=== PATIENT | male | born 1975 | race Two or more races ===

== ENCOUNTER 2016-12-05 14:19 | Emergency (ER) | payer SELFPAY ==
[~2016-12-05] VITALS: Ht 175.3 cm; Wt 111.1 kg
[2016-12-05 14:36] VITALS: BP 138/84
[2016-12-05] MEDS ORDERED: KETOROLAC TROMETH 60MG/2ML VIAL IM ONE (15:45)
[2016-12-05] MEDS ORDERED: IBUPROFEN 800 MG TAB PO ONE (15:45)
== END 2016-12-05 16:34 | disposition home or self-care (01) ==
LOC: ER 14:19
DX: S83.241A Other tear of medial meniscus, current injury, right knee, initial encounter (principal); M17.11 Unilateral primary osteoarthritis, right knee; X50.1XXA Overexertion from prolonged static or awkward postures, initial encounter; Y93.67 Activity, basketball; Y99.8 Other external cause status; Y92.89 Other specified places as the place of occurrence of the external cause
CPT/HCPCS: 73562; 73700; 99284; J1885

== ENCOUNTER 2017-10-29 14:06 | Emergency (ER) | payer SELFPAY ==
[~2017-10-29] VITALS: Ht 175.3 cm; Wt 122.5 kg
[2017-10-29 14:12] VITALS: BP 111/69
[2017-10-29 15:00] LABS: Basophils # (auto) 0.1 uL; Basophils % (auto) 1.1 % (0.0-2.0); Eosinophils # (auto) 0.2 uL; Eosinophils % (auto) 3.4 % (0.0-7.0); Hematocrit 44.9 % (41.0-53.0); Hemoglobin 15.1 g/dL (13.5-17.5); Lymphocytes # (auto) 3.2 uL; Lymphocytes % (auto) 44.9 % (10.0-50.0); Mean Corpuscular Hemoglobin 29.4 pg (28.0-32.0); Mean Corpuscular Hgb Conc. 33.7 g/dL (32.0-36.0); Mean Corpuscular Volume 87.4 fL (80.0-100.0); Monocytes % (auto) 14.2 % (0.0-12.0); Neutrophils # (auto) 2.6 uL; Neutrophils % (auto) 36.4 % (37.0-80.0); Nucleated Red Blood Cells % 0.3 %; Platelet Count (auto) 255 10^3/uL (140-450); Red Blood Cells 5.13 10^6/uL (4.5-5.90); Red Cell Distribution Width 15.1 % (11.8-14.3); White Blood Cell 7.1 10^3/uL (4.4-10.8)
[2017-10-29 15:10] LABS: Alanine Aminotransferase 32 U/L (16-61); Albumin 3.3 g/dL (3.4-5.0); Amylase 81 U/L (25-115); Anion Gap 8 (5-15); Aspartate Aminotransferase 19 U/L (15-37); BUN/Creatinine Ratio 11.4; Blood Urea Nitrogen 14 mg/dL (7-18); Calcium 8.6 mg/dL (8.5-10.1); Carbon Dioxide 25 mmol/L (21-32); Chloride 109 mmol/L (98-107); GFR African American 84 mL/min; GFR Non-African American 69 mL/min; Glucose 118 mg/dL (74-106); Lipase 212 U/L (73-393); Potassium 4.1 mmol/L (3.5-5.1); Sodium 142 mmol/L (136-145)
[2017-10-29 15:16] LABS: Alkaline Phosphatase 142 U/L (45-117); Bilirubin, Total 0.3 mg/dL (0.2-1.0); Total Protein 7.7 g/dL (6.4-8.2)
== END 2017-10-29 19:00 | disposition home or self-care (01) ==
LOC: ER 14:06
DX: K76.0 Fatty (change of) liver, not elsewhere classified (principal)
CPT/HCPCS: 36415; 71045; 76705; 80053; 82150; 83690; 84484; 85025; 93005

== ENCOUNTER 2020-03-27 15:51 | Emergency (ER) | payer MEDICAID ==
[~2020-03-27] VITALS: Ht 175.3 cm; Wt 133.5 kg
[2020-03-27 16:20] VITALS: BP 123/83
== END 2020-03-27 16:27 | disposition home or self-care (01) ==
LOC: ER 15:51
DX: K64.9 Unspecified hemorrhoids (principal); K59.00 Constipation, unspecified